=== PATIENT | male | born 1950 | race Caucasian/White ===

== ENCOUNTER → 2020-01-02 | Outpatient (CLI) | payer MEDICARE, BC ==
--- NOTE | 2020-01-02 18:34 | RAD ---
Examination: Ultrasound right upper extremity venous duplex HISTORY: Right upper extremity edema Comparison: None available TECHNIQUE: Grayscale, color Doppler 2-D, spectral waveforms of the right upper extremity venous system were performed FINDINGS: The right internal jugular vein, subclavian vein, cephalic vein, brachial, radial, axillary, basilic, ulnar veins are patent. IMPRESSION: No evidence of deep venous thrombosis identified right upper extremity venous system. Electronically signed by: Salvatore Pollard MD (01/02/2020 6:31 PM) [id number]
== END | disposition home or self-care (01) ==
LOC: US 17:04
PROVIDERS: ATTEND Specialist
DX: R60.0 Localized edema (principal)
CPT/HCPCS: 93971